=== PATIENT | female | born 1985 | race Caucasian/White ===

== ENCOUNTER 2016-05-10 07:43 | Emergency (ER) | payer MEDICAID ==
[2016-05-10] MEDS ORDERED: ONDANSETRON 4 MG VIAL ONE (08:05)
[2016-05-10] MEDS ORDERED: SODIUM CHLORIDE 0.9% 1,000 ML ONE (08:05)
== END 2016-05-10 11:12 | disposition home or self-care (01) ==
LOC: ER 07:43
DX: K52.9 Noninfective gastroenteritis and colitis, unspecified (principal); R19.7 Diarrhea, unspecified; R11.2 Nausea with vomiting, unspecified; Z87.891 Personal history of nicotine dependence
CPT/HCPCS: 36415; 80053; 81001; 83690; 84702; 85025; 96361; 96374